=== PATIENT | male | born 1985 ===

== ENCOUNTER 2020-04-08 15:46 | Outpatient (REF) | payer MEDICAID, SELFPAY ==
[2020-04-12 21:05] LABS: SARS-CoV-2 RNA Undetected (Undetected); SARS-CoV-2 Specimen Source Nasal
== END 2020-04-08 16:06 ==
LOC: NCHCN 15:46
PROVIDERS: Visit Provider Nurse Practitioner Family
DX: Z20.828 Contact with and (suspected) exposure to other viral communicable diseases (principal)
CPT/HCPCS: U0003